=== PATIENT | female | born 1985 | race Caucasian/White ===

== ENCOUNTER 2023-01-01 15:26 | Outpatient (REF) | payer MEDICAID, SELFPAY | END 2023-01-01 15:27 | disposition home or self-care (01) | LOC: HO.LNP 15:26 | PROVIDERS: PCP Student in an Organized Health Care Education/Training Program; Visit Provider Obstetrics & Gynecology | DX: R87.810 Cervical high risk human papillomavirus (HPV) DNA test positive (principal) | CPT/HCPCS: 57454; 81025; 88305; 88342; 88360 ==

== ENCOUNTER → 2023-01-11 07:58 | Outpatient (BNVA) | payer MEDICAID, SELFPAY | PROVIDERS: PCP Student in an Organized Health Care Education/Training Program; Visit Provider Obstetrics & Gynecology | DX: N87.1 Moderate cervical dysplasia (principal) | CPT/HCPCS: 99212 ==

== ENCOUNTER 2023-01-26 10:34 | Day surgery (SDC) | payer MEDICAID, SELFPAY ==
[2023-01-23 13:21] VITALS: BMI 34.8
--- NOTE | 2023-01-25 08:43 | HO.ANESPROP2 ---
Documented by User: Elodia Meade NP 01/25/23 08:44 HPI - Anesthesia Eval Consult details Narrative: 37yo F for D&C, LEEP,D&C Hysteroscopy, loop electric excision, possible loop electrical excision procedure cone and post cone endocervical curettage PMFSH Active Problems Active Problems: All Active Problems (Updated 01/11/23 @ 08:08 by Jaylan Henry MD) AYANA II (cervical intraepithelial neoplasia II) (Acute) Cervical high risk HPV (human papillomavirus) test positive (Acute) Past Medical History Medical History LGSIL on Pap smear of cervix Family History Family History Mother Cervical cancer Paternal Aunt Breast cancer Paternal Grandfather Colon cancer Surgical History Surgical History H/O oral surgery Social History Social History Household Members: Children Housing: House Alcohol intake: never Patient Tobacco Use Status: Former Tobacco user Are you DNR?: No Advance Directives: No Advance Directives Information Provided: Yes service: No 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 Sexual orientation: Straight/Heterosexual Gender identity: Female Meds Allergies Allergy/AdvReac Type Severity Reaction Status Date / Time No Known Allergies Allergy Unverified 01/11/23 08:02 [No Known Allergies*] Home Medications Medication Instructions Recorded Confirmed Last Taken Type No Known Home Meds 01/01/23 01/23/23 Unknown History Exam Exam Date and Time: January 25, 2023 0843 Height,Weight and Vital Signs: Height 5 ft 4 in Weight 92.079 kg Assessment and Plan Assessment Anesthesia Assessment: Chart Reviewed Documented by User: Adelita Allen MD 01/26/23 11:25 PMFSH Past Medical History Medical History LGSIL on Pap smear of cervix Family History Family History Mother Cervical cancer Paternal Aunt Breast cancer Paternal Grandfather Colon cancer Family history of problems with anesthesia: No Surgical History Surgical History H/O oral surgery History of Problems with Anesthesia: No Social History Social History Household Members: Children Housing: House Alcohol intake: never Patient Tobacco Use Status: Former Tobacco user Are you DNR?: No Advance Directives: No Advance Directives Information Provided: Yes service: No 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 Sexual orientation: Straight/Heterosexual Gender identity: Female Meds Allergies Allergy/AdvReac Type Severity Reaction Status Date / Time No Known Allergies Allergy Unverified 01/11/23 08:02 [No Known Allergies*] Home Medications Medication Instructions Recorded Confirmed Last Taken Type No Known Home Meds 01/01/23 01/23/23 Unknown History Exam Airway Mallampati Class: II TM Dist: >3cm Neck ROM: Full Heart: rrr Lungs: cta Assessment and Plan Assessment Anesthesia Assessment: Anesthesia Plan Discussed Final Anesthetic Review Family History of Problems with Anesthesia: No History of Problems with Anesthesia: No NPO: Yes ASA Class: II Final Preanesthetic Review: No Changes in Pt Med Stat, Meds/Allgs Chart Reviewed, Consent Obtained/Reviewed and Anes Risks/Benef Reviewed Patient Risk: Low Procedure Risk: Low Anesthetic Plan Anesthetic Plan: GA Disposition: Standard PACU
[2023-01-26 10:53] VITALS: BP 121/80; PULSE 69; RESP 20; TEMP 36.8; O2SAT 98
[2023-01-26 10:54] LABS: UPreg QC Valid YES; Urine Pregnancy NEGATIVE (NEGATIVE)
[2023-01-26] MEDS: Lactated Ringers 1,000 ML 100 ML IVCONT (11:04)
--- NOTE | 2023-01-26 11:12 | MHC.SHP ---
Pre-Procedural Eval Section A Date of Service: 01/26/23 The patient is an INPATIENT: No Changes since office visit: No Cold of Flu in the past 2 weeks, No New Medical Problems, No Changes in Medication and No Patient answered all questions The History & Physical has been completed within 30 days and I have reviewed it.: Yes Section B Chief Complaint: Moderate cervical dysplasia Allergies: Allergies Allergy/AdvReac Type Severity Reaction Status Date / Time No Known Allergies Allergy Unverified 01/11/23 08:02 [No Known Allergies*] Plan Diagnosis/Plan: Unchanged I have reviewed the history and physical and performed a pertinent physical examination on my patient. No changes have occurred unless specified. Time Spent With Patient Time: Total time managing care of this patient today ____ minutes.
--- NOTE | 2023-01-26 12:56 | P.BOP_ITS ---
Brief Operative Note Date of Service: 01/26/23 Pre-op diagnosis: AYANA 2 Post-op diagnosis: same Procedure: LEEP CONE , top-hat excision with post CONE ECC Surgeon: Jaylan Henry MD Anesthesia: GLMA and other (Paracervical block) Was an Adult High School Instructor used for this Procedure?: No Estimated blood loss (mL): 0 Pathology: other (Cervical cone, top-hat, Post cone ECC) Condition: stable Disposition: other (Home)
--- NOTE | 2023-01-26 12:57 | P.OP_ITS ---
Operative Note Operative Note Date of Service: 01/26/23 Narrative: Pre op diagnosis: AYANA 2 Operation: Colposcopy, Loop electrical excision procedure cone, top hat endocervical excision, post cone ECC Postop diagnosis: the same Quantitative blood loss: 50 cc Surgeon: Jaylan Henry MD, FACOG Bank Representative: None Pathology: Cervical cone, top-hat endo cervical excision, endo cervical curettage Complications: none Anesthesia: GLMA and Para cervical block Procedure: The patient was put in a dorsal lithotomy position, scrubbed and draped in the usual sterile fashion. A speculum was inserted inside the patient's vagina. The cervix is assessed using the colposcope with acetic acid , the lesions were seen, and at least 1 cm of the squamocolumnar junction was observed. 20 x 5 mm size loop was selected based upon the diameter of the lesion. Lugol solution was used to outline the lesions and area of the transformation zone order to be removed 10 cc of xylocaine with epinephrine were injected submucosally into the surface of the cervix (ectocervix) at the 3, 6, 9, and 12 o'clock positions. The electrosurgical generator is set at 40 ramos on blend 1. The loop is carefully passed simultaneously around and under the transformation zone, in order to ensure excising it making sure the lesion is at least 5 mm far from the specimen margins . The loop was allowed to glide through the cervix from one side to the other, allowing the cutting current to divide the tissue, then using a smaller-diameter loop an endo cervical top-hat excision was performed. An endo cervical curettage is performed following completion of excision, and hemostasis is obtained with a Ball electrode or regular tip cautery. At the end, Monsel's solution was applied to the cone bed. The patient tolerated the procedure well and, all instruments were taken out of the patient vaginal cavity, and the patient was transferred to the PACU in stable condition.
[2023-01-26 13:03] VITALS: BP 103/52; PULSE 102; RESP 16; TEMP 36.5; O2SAT 98
[2023-01-26 13:08] VITALS: BP 108/59; PULSE 85; RESP 17; O2SAT 99
[2023-01-26 13:13] VITALS: BP 113/67; PULSE 65; RESP 16; O2SAT 97
[2023-01-26 13:18] VITALS: BP 104/62; PULSE 63; RESP 16; O2SAT 97
[2023-01-26 13:40] VITALS: BP 122/65; PULSE 71; RESP 17; TEMP 36.6; O2SAT 97
== END 2023-01-26 13:55 | disposition home or self-care (01) ==
PROVIDERS: Nurse Practitioner; PCP Student in an Organized Health Care Education/Training Program; Visit Provider Obstetrics & Gynecology
PROC: 0UBC7ZZ Excision of Cervix, Via Natural or Artificial Opening (ICD-10-PCS; CPT 57522; principal; 2023-01-26 12:30)
DX: N87.1 Moderate cervical dysplasia (principal); Z87.891 Personal history of nicotine dependence
CPT/HCPCS: 57461; 81025; 88305; 88307; J0330; J1885; J2405; J3010

== ENCOUNTER 2023-02-13 08:59 | Outpatient (AMB) | payer MEDICAID, SELFPAY ==
--- NOTE | 2023-02-13 09:04 | MHC.OFFVIS ---
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 The patient has no complaints. The pathology showed the following: A. Cervix, conization: -High-grade squamous intraepithelial lesion (moderate-severe dysplasia, AYANA II-III), involving endocervical glands. -Ectocervical margin is free of dysplasia. -Endocervical margin is free of dysplasia. -Radial (deep) stromal margin is free of dysplasia. -Biopsy site changes present. B. Cervix, top hat , conization: -Endocervical glandular mucosa the biopsy site changes; negative for dysplasia. C. Endocervix, post cone curettage: -Squamous and endocervical glandular mucosa; negative for dysplasia and fragments of benign endometrium/lower uterine segment. 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 Sexual orientation: Straight/Heterosexual Gender identity: Female Female Reproductive History Menstrual Age of Menarche: 14 Date of last menstrual period: 02/08/23 Review of Systems Const All systems reviewed & are unremarkable except as noted in HPI and below Reports as per HPI and Reports no additional complaints GI Reports no additional complaints Reports no additional complaints Assessment & Plan Assessment & Plan (1) AYANA II (cervical intraepithelial neoplasia II): Comment: Status post LEEP cone with post cone ECC Negative margin Code(s): N87.1 - Moderate cervical dysplasia Plan: Discussed with the patient the procedure and the pathology of the LEEP. Instructions given to the patient to schedule an HPV based screening in 6 months, if normal then co testing Q year x 3 , if wnl cotest q3 x 25 years check the results and treat accordingly. All questions answered patient verbalized understanding. Coding Level of Care Code Est Pt Level 3 (00677) Diagnoses AYANA II (cervical intraepithelial neoplasia II) N87.1
[2023-02-13 09:07] VITALS: BP 116/62
== END 2023-02-13 09:14 | disposition home or self-care (01) ==
LOC: HO.HWS 08:59
PROVIDERS: PCP Student in an Organized Health Care Education/Training Program; Visit Provider Obstetrics & Gynecology
DX: N87.1 Moderate cervical dysplasia (principal)
CPT/HCPCS: 99213

== ENCOUNTER → 2023-02-13 08:59 | Outpatient (BNVA) | payer MEDICAID, SELFPAY | PROVIDERS: PCP Student in an Organized Health Care Education/Training Program; Visit Provider Obstetrics & Gynecology | DX: N87.1 Moderate cervical dysplasia (principal) | CPT/HCPCS: 99212 ==

== ENCOUNTER 2023-03-09 15:40 | Outpatient (REF) | payer MEDICAID, SELFPAY ==
[2023-03-09 18:06] LABS: Cholesterol 150 mg/dL; HDL Cholesterol 42 mg/dL; LDL Cholesterol Calculated 84 mg/dl; Triglycerides 120 mg/dL
[2023-03-10 03:57] LABS: ~HepC Num1 0.09 S/CO (0.00-0.79); ~Hepatitis C Antibody Nonreactive (Nonreactive)
[2023-03-12 16:33] LABS: TS Negative Control Passed; TS Panel A 0; TS Panel B 4; TS Positive Control Passed; TSpotTB Negative (Negative)
[2023-03-14 18:19] LABS: HIV RNA PCR Qn Copies Not Detected Copies/mL; HIV RNA PCR Qn Log Copies Not Detected Log cps/mL
== END 2023-03-09 15:41 | disposition home or self-care (01) ==
LOC: HO.CHCLDS 15:40
PROVIDERS: Visit Provider Registered Nurse
DX: Z00.00 Encounter for general adult medical examination without abnormal findings (principal); Z11.1 Encounter for screening for respiratory tuberculosis; Z11.4 Encounter for screening for human immunodeficiency virus [HIV]; E66.09 Other obesity due to excess calories; Z68.34 Body mass index [BMI] 34.0-34.9, adult
CPT/HCPCS: 36415; 80061; 86481; 86803; 87536; 87900

== ENCOUNTER 2023-08-15 10:36 | Outpatient (AMB) | payer SELFPAY ==
--- NOTE | 2023-08-15 10:55 | MHC.OFFVIS ---
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 Information Interpreted: non-clinical & clinical Director Customer: Director Customer Present (Mady FAROOQ) Accompanied by: Self / Same As Patient Allergies No Known Allergies [No Known Allergies*] Allergy (Unverified 08/15/23 10:58) Is last menstrual period known: Yes HPI HPI Comments History of Present Illness Details Presenting for 6 months status post LEEP cone with post cone ECC, pathology showed AYANA 2-3 positive endocervical margin but negative top-hat excision and negative post cone ECC for co testing and colposcopy PFSH Medical History LGSIL on Pap smear of cervix Surgical History H/O oral surgery Family History Mother Cervical cancer Paternal Aunt Breast cancer Paternal Grandfather Colon cancer Social History Household Members: Children Housing: House Alcohol intake: never Patient Tobacco Use Status: Former Tobacco user service: No 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 Sexual 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: Straight/Heterosexual Gender identity: Female Female Reproductive History Menstrual Age of Menarche: 14 Total pregnancies: 4 Full term: 2 Number of Living Children: 2 Ab spontaneous: 2 Review of Systems Const All systems reviewed & are unremarkable except as noted in HPI and below Card Reports as per HPI Resp Reports as per HPI GI Reports as per HPI and Reports no additional complaints Reports as per HPI Physical Exam Vital Signs: Last Vital Signs BP 116/74 08/15/23 10:57 BMI result Body Mass Index 35.2 Const General: cooperative, healthy appearing and comfortable Chest Chest palpation & inspection: normal inspection of the chest and normal palpation of entire chest wall Breast/axilla inspection: normal inspection of the breasts and normal inspection of the axillae Breast/axilla palpation: normal palpation of the breasts, normal palpation of the axillae and no axillary lymphadenopathy Resp Effort & Inspection: normal respiratory effort Auscultation: clear to auscultation bilaterally Percussion: percussion normal Cardio Palpation: normal PMI Rate: regular rate Rhythm: regular rhythm Heart sounds: no murmurs and no rubs Peripheral pulses: Peripheral pulses 2+ throughout GI Inspection: Yes normal to inspection Palpation (GI): Soft to palpation, nontender, no guarding, not rigid and No hepatosplenomegaly present Percussion: Yes normal to percussion Auscultation: normal bowel sounds Rectal Exam - Female: deferred General: Yes no CVA tenderness External Female Exam: normal external appearance and normal appearance of the urethra Speculum Exam - Vagina: normal appearance of the vagina, normal palpation, no lesions and no masses Speculum Exam - Cervix: normal appearance of the cervix, normal palpation, no lesions, no masses and nontender Bimanual exam- vagina & uterus: normal bimanual exam, normal palpation, uterine size normal, normal palpation, uterine shape normal, No Cervical tenderness present and non-tender Bimanual Exam- Adnexa, other: normal adnexae Back/Spine/Pelvis Back: no CVA tenderness Office Procedures Colposcopy Before the procedure was started discussed with the patient the procedure, alternatives & all the risks associated with the procedure (bleeding, infection, injury to vagina, bladder, vessels, possible need for transfusion with all its risks) then patient signed the consent UPT done in the office & negative Six months post LEEP cone with post cone ECC Speculum inserted, acetic acid used Colposcopy done Transformation zone seen, acetowhite lesions identified at 5+7+11+1 o?clock, cervical biopsies taken from 5+7+11+1 o?clock, ECC done afterwards. Vaginoscopy of the upper vagina showed no evidence of any aceto-white lesions Monsel solution used for hemostasis. The patient tolerated well . At the end the patient was instructed to call if temp>100.4, abdominal pain, n/v, bleeding; The patient was given the following instructions: nothing per vagina, no intercourse or bath tub use. All questions answered the patient verbalized understanding. Instructed the patient to make an appointment in 2 weeks for follow-up This note was generated with a voice recognition program. Some errors may have been overlooked during the review of this note. Sometimes these errors may affect the content or meaning of a given sentence. [id number] of cervix including upper vagina with biopsy and ECC Procedure code (CPT) selection complete Assessment & Plan Assessment & Plan (1) AYANA II (cervical intraepithelial neoplasia II): Comment: Status post LEEP cone with post cone ECC Code(s): N87.1 - Moderate cervical dysplasia Plan: Co testing taken, colposcopy done, see procedure note. Instructions given the patient to schedule 2 week follow-up appointment and a 1 year co testing appointment Counseled the patient about the recommended dietary allowance of 1000 mg of Calcium & 600 IU of vitamin D. The patient was instructed to perform monthly self-breast exams and to schedule an annual exam in a year; All questions answered and the patient verbalized understanding. Instructed the patient to schedule annual exam in a year Orders: Orders AMB Colposcopy Today N87.1 - Moderate cervical dysplasia Coding Level of Care Code Est Pt Prev Care 18-39y([id number]) Diagnoses AYANA II (cervical intraepithelial neoplasia II) N87.1 CPT Codes Colposcopy - CPT: 66495-[id number] of cervix including upper vagina with biopsy and ECC ([id number])
[2023-08-15 10:57] VITALS: BP 116/74; BMI 35.2
== END 2023-08-15 11:23 | disposition home or self-care (01) ==
PROVIDERS: PCP Student in an Organized Health Care Education/Training Program; Referring Provider Student in an Organized Health Care Education/Training Program; Visit Provider Obstetrics & Gynecology
DX: Z01.419 Encounter for gynecological examination (general) (routine) without abnormal findings (principal); N87.1 Moderate cervical dysplasia; Z32.02 Encounter for pregnancy test, result negative
CPT/HCPCS: 57454; 99395

== ENCOUNTER 2023-08-15 10:36 | Outpatient (REF) | payer MEDICAID, SELFPAY ==
[2023-08-18 04:49] LABS: HPV mRNA E6/E7 rflx Not Detected (Not Detected)
== END 2023-08-15 10:37 | disposition home or self-care (01) ==
LOC: HO.LNP 10:36
PROVIDERS: PCP Student in an Organized Health Care Education/Training Program; Visit Provider Obstetrics & Gynecology
DX: Z12.4 Encounter for screening for malignant neoplasm of cervix (principal); Z11.51 Encounter for screening for human papillomavirus (HPV); N87.1 Moderate cervical dysplasia
CPT/HCPCS: 57454; 81025; 87624; 88142; 88305; 99395

== ENCOUNTER 2023-09-10 12:58 | Outpatient (AMB) | payer SELFPAY ==
--- NOTE | 2023-09-10 13:09 | A.OFFVIS_ITS ---
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 The patient is doing well with no complaints. The pathology showed the following: A. Endocervix, curettage: Endocervical glandular and lower uterine segment mucosa; negative or dysplasia; no squamous mucosa present. B. Cervix, 1:00, biopsy: Squamous mucosa; negative for dysplasia; no endocervical glandular component present. C. Cervix, 3:00, biopsy: Squamous mucosa with inflammation; negative for dysplasia; no endocervical glandular component present. D. Cervix, 7:00, biopsy: Squamous mucosa; negative for dysplasia; no endocervical glandular component present. E. 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: Straight/Heterosexual Gender identity: Female Female Reproductive History Menstrual Age of Menarche: 14 Duration of menses: 6-7 days Date of last menstrual period: 09/09/23 control method: none Total pregnancies: 4 Full term: 2 Date of last pap smear: 08/22/23 (unsatisfactory) History of abnormal pap smear: Yes (2013 AYANA) Review of Systems Const All systems reviewed & are unremarkable except as noted in HPI and below Reports as per HPI and Reports no additional complaints GI Reports no additional complaints Reports no additional complaints Physical Exam Vital Signs: Last Vital Signs BP 112/60 09/10/23 13:12 BMI result Body Mass Index 34.8 Assessment & Plan Assessment & Plan (1) AYANA II (cervical intraepithelial neoplasia II): Comment: Status post LEEP cone with post cone ECC Code(s): N87.1 - Moderate cervical dysplasia Plan: Discussed with the patient the pathology results of the colposcopy biopsies & endocervical curettage (negative). Discussed with the patient the sensitivity s pecificity, positive and negative predictive value in detecting cervical cancer in addition discussed the regression, persistence and progression rates. Recommended co-testing in 12 months, if cytology and or HPV are abnormal will proceed was colposcopy biopsy and endocervical curettage. Instructions given to the patient to schedule a co test appointment in 1 year. All questions answered the patient verbalized understanding. (2) Unsatisfactory cervical Papanicolaou smear: Code(s): R87.615 - Unsatisfactory cytologic smear of cervix Plan: The patient would like to defer a Pap smear for a week since she is on her menstrual cycle. Instructions given the patient to schedule an appointment within a week for repeat Pap smear. All questions answered, the patient verbalized understanding. Coding Level of Care Code Est Pt Level 3 (93081) Diagnoses AYANA II (cervical intraepithelial neoplasia II) N87.1 Unsatisfactory cervical Papanicolaou smear R87.615
[2023-09-10 13:12] VITALS: BP 112/60; BMI 34.8
== END 2023-09-10 13:25 | disposition home or self-care (01) ==
PROVIDERS: PCP Student in an Organized Health Care Education/Training Program; Visit Provider Obstetrics & Gynecology
DX: N87.1 Moderate cervical dysplasia (principal)
CPT/HCPCS: 99213

== ENCOUNTER → 2023-09-10 12:58 | Outpatient (BNVA) | payer MEDICAID, SELFPAY | PROVIDERS: PCP Student in an Organized Health Care Education/Training Program; Visit Provider Obstetrics & Gynecology | DX: N87.1 Moderate cervical dysplasia (principal); R87.615 Unsatisfactory cytologic smear of cervix | CPT/HCPCS: 99212 ==

== ENCOUNTER 2023-09-20 15:39 | Outpatient (AMB) | payer SELFPAY ==
[2023-09-20 15:44] VITALS: BP 116/65; BMI 34.8
--- NOTE | 2023-09-20 15:44 | MHC.OFFVIS ---
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/Heterosexual Gender identity: Female Female Reproductive History Menstrual Age of Menarche: 14 Date of last menstrual period: 09/10/23 Review of Systems Const All systems reviewed & are unremarkable except as noted in HPI and below Reports as per HPI and Reports no additional complaints GI Reports no additional complaints Reports no additional complaints Physical Exam Vital Signs: Last Vital Signs BP 116/65 09/20/23 15:44 BMI result Body Mass Index 34.8 Assessment & Plan Assessment & Plan (1) Unsatisfactory cervical Papanicolaou smear: Code(s): R87.615 - Unsatisfactory cytologic smear of cervix Plan: Pap repeated. All questions answered, the patient verbalized understanding Coding Level of Care Code Est Pt Level 3 (73205) Diagnoses Unsatisfactory cervical Papanicolaou smear R87.615
== END 2023-09-20 16:26 | disposition home or self-care (01) ==
LOC: HO.HWS 15:39
PROVIDERS: PCP Student in an Organized Health Care Education/Training Program; Visit Provider Obstetrics & Gynecology
DX: R87.615 Unsatisfactory cytologic smear of cervix (principal)
CPT/HCPCS: 99213

== ENCOUNTER 2023-09-20 15:39 | Outpatient (REF) | payer MEDICAID, SELFPAY | END 2023-09-20 15:40 | disposition home or self-care (01) | LOC: HO.LNP 15:39 | PROVIDERS: PCP Student in an Organized Health Care Education/Training Program; Visit Provider Obstetrics & Gynecology | DX: Z12.4 Encounter for screening for malignant neoplasm of cervix (principal); R87.615 Unsatisfactory cytologic smear of cervix | CPT/HCPCS: 88142; 99212 ==

== ENCOUNTER 2024-04-14 10:33 | Outpatient (REF) | payer MEDICAID, SELFPAY ==
[2024-04-14 12:06] LABS: Estimated Average Glucose 100 mg/dL; Hemoglobin A1c % 5.1 % (<6.0)
[2024-04-14 12:30] LABS: Anion Gap 12 (12-20); Blood Urea Nitrogen 11 mg/dL (9-16); Calcium 9.7 mg/dL (8.4-10.2); Carbon Dioxide 23 mmol/L (22-29); Chloride 106 mmol/L (96-108); Estimated Glomerular Filt Rate > 60; Glucose Random 94 mg/dL (60-115); Potassium 4.1 mmol/L (3.3-5.1); Sodium 137 mmol/L (135-145)
[2024-04-14 13:32] LABS: HBS Num1 > 1000.00 mIU/mL (0-7.99); HBsAGNum1 0.32 S/CO (0.00-0.99); Hepatitis A Antibody IgM 0.13 Index (0-0.79); Hepatitis B Core Antibody Nonreactive (Nonreactive); Hepatitis B Surface Antigen Negative (Negative); ~HepC Num1 0.18 S/CO (0.00-0.79); ~Hepatitis A Antibody IgM Nonreactive (Nonreactive); ~Hepatitis B Surface Antibody REACTIVE (Nonreactive); ~Hepatitis C Antibody Nonreactive (Nonreactive)
[2024-04-15 09:59] LABS: Rubeola IgG (Measles) <13.50 AU/mL
[2024-04-17 18:43] LABS: TS Negative Control Passed; TS Panel A 1; TS Panel B 0; TS Positive Control Passed; TSpotTB Negative (Negative)
== END 2024-04-14 10:34 | disposition home or self-care (01) ==
LOC: HO.HHCL 10:33
PROVIDERS: Visit Provider Internal Medicine
DX: Z00.00 Encounter for general adult medical examination without abnormal findings (principal); R61 Generalized hyperhidrosis
CPT/HCPCS: 36415; 80048; 83036; 84443; 86481; 86704; 86706; 86709; 86735; 86762; 86765; 86803; 87340

== ENCOUNTER 2025-06-19 14:32 | Outpatient (REF) | payer SELFPAY ==
--- OUTSIDE RECORDS SUMMARY | 2025-06-19 14:50 | XMS_ITS | Clinical Summary ---
Author Organization [employer] Address [address] [place] [address] [address] [place] [address] Care Team Providers Care Agency Legal Counsel Name Role Phone Benjamín Villar MILTON Primary Care Provider [phone] Allergies No known active allergies Medications escitalopram (Lexapro) 5 MG tabletIndication s:Encounter for physical examination Take 1 tablet (5 mg) by mouth Once per day. 30 tablet 2 06/09/2025 6 Active Active Problems Problem Noted Date Diagnosed Date Cervical high risk HPV (human papillomavirus) te st positive 06/08/2025 AYANA II (cervical intraepithelial neoplasia II) 1 08/08/2024 At increased risk of breast cancer 04/14/2024 Assessment & Plan (06/09/2025 4:01 PM EST): Strong family history of breast cancer diagnosis in 40s Referred for mammo Orders: BI Mammogram Screening Tomosynthesis Bilateral; Future Assessment & Plan (04/14/2024 10:22 AM EDT): - has two relatives with breast CA between age 40s-50s - order diagnostic mammogram and f/u with PCP Diaphoresis 04/14/2024 Assessment & Plan (04/14/2024 10:26 AM EDT): - r/o DM vs perimenopausal symptoms - order labs - if labs are normal, she will start OTC soy based supplements Estroven, etc. and f/u with PCP in 2 months Decreased vision in both eyes 04/14/2024 Assessment & Plan (04/14/2024 10:03 AM EDT): - refer to ophthalmology Chronic dental pain 04/14/2024 Assessment & Plan (04/14/2024 10:20 AM EDT): - advised to make an appt with our dental clinic or any of the dental clinics in the area, I gave pt a list of dental clinics - will ask the histology supervisor to help her expedite the appt Class 1 obesity due to exces s calories without serious comorbidity with body mass index (BMI) of 34.0 to 34.9 in adult 03/05/2023 Encounter for preventive health examination 01/2023 Assessment & Plan (04/14/2024 10:22 AM EDT): Discussed with patient re increase fresh fruit and vegetable intake. Counseled re moderate exercise as tolerated, up to 20 min/d Patient feels safe at home. PAP smear: up to date, next one due in 2024 with [employer] Mammogram: needs diagnostic mammogram due to high risk, order diagnostic mammogram Eye exam: overdue will refer to our eye clinic CRC screen: N/A starts at age 46 Lipids/FBS: up to date, next one due in 2026 Vaccinations: she will have influenza IZ today, advised to have Covid IZ at nearest pharmacy, order MMR Hep-B titers and f/u with PCP. Other adult IZ are up to date Dental visit: overdue, gave information about dental clinics to schedule an appointment and will ask our histology supervisor to reach out to dental clinic to expedite appointment Assessment & Plan (03/05/2023 11:06 AM EDT): Normal physical exam. T-spot for work. PHQ: 0 STI: male, monogamous, Lmp: yesterday last day. 03/04/23 Pap: 6 months ago [facility] Dr. Moseley Substance use: denies smoking, denies drug use, occasional marijuana, denies etoh. Lipids: labs ordered. Vacc.: hep B Eye exam: One year ago, [place]. She is making appointment for f/up soon. Dental home: last year at [facility]. Encounters Date Type Department Care Team Description 06/10/2025 Telephone [facility] [address] [place] [address] Benjamín Villar CNP Insurance 06/09/2025 2:45 PM EST Office Visit [facility] [address] [place] [address] Benjamín Villar CNP Encounter for physical examination (Primary Dx); At increased risk of breast cancer; Encounter for immunization; Mood changes; Dietary counseling; Exercise counseling; Class 1 obesity without serious comorbidity with body mass index (BMI) of 34.0 to 34.9 in adult, unspecified obesity type 06/09/2025 Travel 06/08/2025 Travel 06/08/2025 Telephone [facility] [address] [place] [address] Benjamín Villar CNP chart prep 06/02/2025 Patient Outreach [facility] [address] [place] [address] Benjamín Villar CNP Pre-visit Planning (Pre visit planning LVM ) from Last 3 Months Immunizations Immunization Administration Dates Next Due Hep B, Unspecified 08/15/2018 Influenza injectable quadriv alent IIV4 with preservative 05/28/2019,08/30/2017 Influenza injectable quadriv alent preservative free 07/09/2018 Influenza, IIV3, injectable 07/25/2011, 1 Influenza, Split (incl. pamella fied surface antigen) 08/12/2013,07/11/2012 Influenza, seasonal, injecta ble, preservative free 06/09/2025,04/14/2024,05/18/2016 MMR 08/15/2018 Moderna Covid-19 Vaccine 12+ 06/14/2021,11/25/19 21,10/27/2020 Pneumococcal Polysaccharide PPSV23 04/10/2011, TD (adult), 2 Lf tetanus tox oid, preservative free, adsorbed 01/18/2006 Tdap 07/09/2018,03/30/2016,10/16/2013 Family History Medical History Relation Name Comments Breast cancer Maternal Grandfather Colon cancer Maternal Grandfather Relation Name Status Comments Maternal Grandfather Social History Tobacco Use Types Packs/Day Years Used Date Smoking Tobacco: Never Smokeless Tobacco: Never Tobacco Cessation:Counseling Given: Not Answered Alcohol Use Standard Drinks/Week Comments Never 0 (1 standard drink = 0.6 oz pur e alcohol) Depression Answer Date Recorded Patient Health Questionnaire-9 Score 7 06/09/2025 Patient Health Questionnaire-9 Score 7 06/09/2025 Last PHQ-9: Questionnaire Data Not on file 1 08/09/2024 Housing Stability Answer Date Recorded What is your housing situation today? I have aguilar david 06/09/[address] you li ve. Do you have problems with any of the following? None of the above 06/09/2025 Food Insecurity Answer Date Recorded Within the past 12 months, y ou worried that your food would run out before you got money to buy more: Never True 06/09/2025 Within the past 12 months,th e food you bought just didn't last and you didn't have enough money to get more: Never True 05/2025 Transportation Answer Date Recorded In the past 12 months, has l ack of transportation kept you from medical appts, meetings, work or from getting things needed for daily living? No 06/09/2025 Utilities Answer Date Recorded In the past 12 months, has t he electric, gas, oil or water company threatened to shut off services in your home? No 06/09/2025 Depression Answer Date Recorded Patient Health Questionnaire-2 Score 4 06/09/2025 Internet Access Answer Date Recorded Internet Access Q1 Yes 06/09/2025 Internet Access Q2 Not on file 06/09/2025 Comments No Sex and Gender Information Value Date Recorded Sex Assigned at Female 05/29/2022 10:18 AM EDT Legal Sex Female 10:18 AM EDT Gender Identity Female 05/29/2022 10:18 AM EDT Sexual Orientation Choose not to disclose 2021 10:18 AM EDT Last Filed Vital Signs Vital Sign Reading Time Taken Comments Blood Pressure 114/68 06/09/2025 3:07 PM EST Pulse 72 06/09/2025 3:07 PM EST Temperature 36.1 C (97 F) 06/09/2025 3:07 PM EST Respiratory Rate 14 06/09/2025 3:07 PM EST Oxygen Saturation 98% 06/09/2025 3:07 PM EST Inhaled Oxygen Concentration - - Weight 93.4 kg (206 lb) 06/09/2025 3:07 PM EST Height 165.1 cm (5' 5 ) 06/09/2025 3:07 PM EST Body Mass Index 34.28 06/09/2025 3:07 PM EST Plan of Treatment Health Maintenance Due Date Last Done Comments HIV Screening 1985 Family Planning (PISQ) 2000 HPV Vaccines (1 - 3-dose series) 2000 Hepatitis B Vaccines (2 of 3 - 19+ 3-dose series) 09/12/2018 08/15/2018 Cervical Cancer Screening 09/20/2024 HPV/Cotest 09/20/2024 10/24/2022, 09/28, 04/12/2021, Additional history exists Pap Smear 09/20/2024 09/20/2023, 07/30, 10/24/2022, Additional history exists COVID-19 Vaccine ( season) 2025 06/14/2021, 11/24/2020, 10/27/2020 Tobacco Screening 04/14/2025 04/14/2024 Disability Screening 06/08/2026 06/08/2025 Alcohol/Substance Use Screening 06/09/2026 06/09/2025 Depression Screening 06/09/2026 06/09/2025, 06/09/20 25 SDOH Screening 06/09/2026 06/09/2025 Lipid Panel 03/09/2028 03/09/2023 DTaP/Tdap/Td Vaccines (4 - Td or Tdap) 07/09/2028 07/09/2018, 03/30/2016, 10/16/2013, Additional history exists Zoster Vaccines (1 of 2) 2035 RSV Patients and Patients Aged 60 years or older (1 - 1-dose 75+ series) 2060 Pneumococcal Vaccine: Pediatrics (0 to 5 Years) and At-Risk Patients (6 to 49) Years Aged Out 04/10/2011, 05/12/2003 No longer eligibl e based on patient's age to complete this topic Hepatitis C Screening Completed 04/14/2024, 023 Influenza Vaccine Completed 06/09/2025, , 05/28/2019, Additional history exists HIB Vaccines Aged Out No longer eligi ble based on patient's age to complete this topic Hepatitis A Vaccines Aged Out No long er eligible based on patient's age to complete this topic IPV Vaccines Aged Out No longer eligi ble based on patient's age to complete this topic Meningococcal B Vaccine Aged Out No l onger eligible based on patient's age to complete this topic Meningococcal Vaccine Aged Out No eleni devon eligible based on patient's age to complete this topic RSV under 20 months Aged Out No longe r eligible based on patient's age to complete this topic Rotavirus Vaccines Aged Out No longer eligible based on patient's age to complete this topic Procedures Procedure Name Priority Date/Time Associated Diagnosis Comments HEPATITIS PANEL, GENERAL Routine 04/14/2024 10:35 AM EDT Encounter for preventive health examination PAP SMEAR Routine 09/20/2023 3:57 PM EST Screening-pulmonary TB LIPID PANEL, STANDARD Routine 03/09/2023 3:46 PM EDT Class 1 obesity due to excess calories without serious comorbidity with body mass index (BMI) of 34.0 to 34.9 in adult HPV GENOTYPES 16,18/45 Routine 10/24/2022 1:32 PM EDT from Last 3 Months or Most Recently Relevant to Health Maintenance Results * Hepatitis Panel, General (04/14/2024 10:35 AM EDT) Hepatitis A IgM Nonreactive Nonreactive [facility] Comment:IgM antibodies to LANDIN V not detected; does not exclude earlyacute or recovered HAV infection. ~Hepatitis B Surface Antibody REACTIVE Nonreactive [facility] Comment:REACTIVE: > 11.99 mI U/mL Hepatitis B Core Antibody Nonreactive Nonreactive [facility] Hepatitis C Antibody Nonreactive Nonreactive [facility] Comment:Antibodies to HCV no t detected; does not exclude early acuteHCV infection. Hepatitis B Surface Ag Negative Negative [facility] Blood 04/14/2024 10:3 5 AM EDT 04/14/2024 11:33 AM EDT us Wanda Thapa MD LAB BLOOD ORDERABLES Fin al Result [facility] [address] [place] [phone] * Pap Smear (09/20/2023 3:57 PM EST) 09/20/2023 3:57 PM EST 09/21/2023 10:00 AM EST Narrative [facility] - 10/05/2023 10:05 AM EST ----- ------- Name: Stormy Parra Age/Sex: 38/F : 1985 Unit#: [id number] Attend Dr: Jaylan Henry MD Re09/20/23 Status: [facility] REF Location: [facility] Disch: ----- ------- SPEC : [id number] RECD: 09/21/23-1000 STATUS: SANG BUSTOS NUM: [id number] SELWYN: 09/20/23-1556 [facility] [address]: Jaylan Henry MD ENTERED: 09/21/23-1034 SP TYPE: Pap Smr OTHR DR: Nilam Vega MD ORDERED: Pap Smear Interpretation Satisfactory for evaluation. No endocervical cells seen. Negative for intraepithelial lesion or malignancy. Clinical Information LMP: 09/09/23 Previous PAP test: 08/16/23, Unsat Other history: Moderate cervical dysplasia, HPV+ Material Received ThinPrep-Cervical Copies To: Nilam Vega MD [address] [facility] [address] [place] [id number] Jaylan Henry MD [address] [place] [address] Dr. Choi [address] [place] [address] ----- ------- Signed (signature on file) ARUNA Pisano (ASCP) 10/05/23 1005 ----- ------- END OF REPORT us Generic External Data Provider LAB CYTOLOGY COY CAVANAUGH Final Result [facility] [address] [place], [place] [phone] * Lipid Panel, Standard (03/09/2023 3:46 PM EDT) Triglycerides 120 mg/dL [facility] Comment:Desirable Triglyceri de: less than 150 mg/dLBorderline High Triglyceride 150-199 mg/dLHigh Triglyceride: 200-499 mg/dLVery High Triglyceride: greater than or equal to 5OO mg/dL Cholesterol 150 mg/dL [facility] Comment:Desirable Cholestero l: less than 200 mg/dLBorderline High Cholesterol: 200-239 mg/dLHigh Cholesterol: greater than 239 mg/dL LDL Cholesterol Calculated 84 mg/dl [facility] Comment:Desirable LDL: less than 100 mg/dLNear Optimal/Above Optimal LDL: 110- 129 mg/dLBorderline High LDL: 130-159 mg/dLHigh LDL: 160-189 mg/dLVery High LDL: greater than or equal to 190 mg/dL HDL Cholesterol 42 mg/dL [facility] Comment:Desirable HDL: great er than 40 mg/dL Note: This HDL assay may give artificially low results in patients with liver disease. Blood Venous blood specimen / Unknown 03/09/2023 3:46 PM EDT 03/09/2023 5:41 PM EDT Felipe Erickson AGN LAB BLOOD ORDERABLES Final Res ult Performing Organization Address City/[facility]/ZIP Co de Phone Number [facility] [address] [place] [phone] * (ABNORMAL) HPV Genotypes 16,18/45 (10/24/2022 1:32 PM EDT) HPV 16 RNA DETECTED(A) NOT DETECTED [employer] [place] [employer] HPV 18/45 RNA NOT DETECTED NOT DETECTED [employer] [place] [employer] Comment: Methodology: Sales And Service Specialist Mediated Amplification Cervical sources are required for HPV testing. If a vaginal source from a patient who has had a total hysterectomy with removal of cervix was submitted, please contact the testing laboratory for alternative testing options. 10/24/2022 1:32 PM EDT 10/25/2022 10:46 AM EDT Dotty HULL LAB CYTOLOGY ORDERABLES F inal Result Performing Organization Address City/[facility]/ZIP Co de Phone Number [facility] [address] [place] [address] [employer] [place] [facility] [address] [place] [phone] from Last 3 Months or Most Recently Relevant to Health Maintenance Insurance [facility] [place] [phone] Care Teams Agency Legal Counsel Relationship Specialty Start Date End Date Benjamín Villar CNP PCP - General Family Medicine 03/05/25
--- OUTSIDE RECORDS SUMMARY | 2025-06-19 14:50 | XMS_ITS | Encounter Summary ---
Author Organization [employer] Address [address] [place] [address] [address] [place] [address] Care Team Providers Care Software Asset Management Analyst Name Role Phone Nilam Vega MD Primary Care Provider [phone] Benjamín Villar CNP Primary Care Provider [phone] Encounter Details Date Type Department Care Team (Latest Contact Info) Description 04/07/2019 Abstract [facility] CONVERSIONS Dental, Provider, DDS Social History Tobacco Use Types Packs/Day Years Used Date Smoking Tobacco: Never Assessed Comments Unknown Sex and Gender Information Value Date Recorded Sex Assigned at Female 05/29/2022 10:18 AM EDT Legal Sex Female 10:18 AM EDT Gender Identity Female 05/29/2022 10:18 AM EDT Sexual Orientation Choose not to disclose 2021 10:18 AM EDT documented as of this encounter Plan of Treatment Not on file documented as of this encounter Visit Diagnoses Not on filedocumented in this encounter Care Teams Software Asset Management Analyst Relationship Specialty Start Date End Date Nilam Vega MD [address] [place] [address] PCP - General Family Medicine 07/17/12 03/04/25 Benjamín Villar CNP [address] [place] [address] PCP - General Family Medicine 03/05/25 documented as of this encounter
[2025-06-19 18:33] LABS: MANUAL DIFF FLAG NO
[2025-06-19 18:40] LABS: Hematocrit 40.8 % (37.0-47.0); Hemoglobin 13.4 g/dl (12.0-16.0); Imm Gran Abs Auto 0.03 X10*3/uL (0.00-0.03); Imm Gran Pct Auto 0.3 % (0.0-0.4); Lymphocytes Absolute Auto 2.5 X10*3/uL (1.2-4.9); Mean Corpuscular HGB Conc 32.8 g/dl (31.0-35.0); Mean Corpuscular Hemoglobin 26.7 pg (27.0-33.0); Mean Corpuscular Volume 81.3 fL (80.0-98.0); NRBC Abs Auto 0.000 X10*3/uL (0.0-0.012); NRBC Pct Auto 0.0 /100WBC (0.0-0.2); Platelet Count 221 X10*3/uL (160-400); Red Blood Count 5.02 X10*6/uL (4.20-5.50); White Blood Count 9.5 X10*3/uL (4.8-10.8)
[2025-06-19 18:54] LABS: Anion Gap 10 (12-20); Blood Urea Nitrogen 11 mg/dL (9-16); Calcium 8.9 mg/dL (8.4-10.2); Carbon Dioxide 24 mmol/L (22-29); Chloride 108 mmol/L (96-108); Cholesterol 138 mg/dL (<200); Estimated Glomerular Filt Rate > 60; HDL Cholesterol 36 mg/dL (>40); Potassium 4.0 mmol/L (3.3-5.1); Sodium 138 mmol/L (135-145); Triglycerides 106 mg/dL (<150)
[2025-06-20 09:01] LABS: HIV Num 1 0.06 S/CO (0.00-0.99); ~HepC Num1 0.11 S/CO (0.00-0.79); ~Hepatitis C Antibody Nonreactive (Nonreactive)
[2025-06-22 09:03] LABS: TS Negative Control Passed; TS Panel A 0; TS Panel B 0; TS Positive Control Passed; TSpotTB Negative (Negative)
== END 2025-06-19 14:33 | disposition home or self-care (01) ==
LOC: HO.CHCLDS 14:32
DX: Z00.00 Encounter for general adult medical examination without abnormal findings (principal); Z13.1 Encounter for screening for diabetes mellitus; Z13.6 Encounter for screening for cardiovascular disorders; Z13.21 Encounter for screening for nutritional disorder; Z13.29 Encounter for screening for other suspected endocrine disorder
CPT/HCPCS: 36415; 80048; 80061; 83036; 84443; 85025; 86481; 86803; 87389